=== PATIENT | male | born 1975 | race Caucasian/White ===

== ENCOUNTER → 2018-10-24 09:09 | Outpatient (CLI) | payer MEDICAID, SELFPAY ==
--- NOTE | 2018-10-24 09:11 | RAD_ITS ---
STUDY: X-RAY - CERVICAL SPINE REASON FOR EXAM: Male, 43 years old. right shoulder pain TECHNIQUE: 5 view(s) of the cervical spine were obtained. COMPARISON: None FINDINGS: There is straightening of the normal cervical lordosis. There is multi-level endplate spondylosis. There is multi-level degenerative disc disease with multilevel disc space narrowing. There is no demonstrated spondylitic listhesis on flexion or extension The soft tissue structures are unremarkable. RAD/Cerv Spine Obl/Flex/Ext Comp IMPRESSION: Degenerative changes of the spine. Electronically Signed: Devi Santana MD at 11:57 EDT Tel , Service support ,
--- NOTE | 2018-10-24 09:11 | RAD_ITS ---
STUDY: X-RAY - LEFT SHOULDER REASON FOR EXAM: Male, 43 years old. Pain TECHNIQUE: 4 view(s) of the shoulder. COMPARISON: None. FINDINGS: There is mild degenerative arthrosis of the glenohumeral articulation. Normal acromioclavicular joint. Normal acromion. Normal humeral head and visualized proximal humerus. The soft tissue structures are unremarkable. There is no demonstrated fracture. Normal visualized pulmonary apex. RAD/Shoulder min 2 Views IMPRESSION: Mild glenohumeral arthrosis. Electronically Signed: Madi Holguin MD at 9:53 EDT , Service support ,
== END ==
PROVIDERS: Family Provider Preventive Medicine Occupational Medicine; PCP Preventive Medicine Occupational Medicine; Referring Provider Physician Assistant; Visit Provider Physician Assistant
DX: R20.0 Anesthesia of skin (principal); R20.2 Paresthesia of skin; R52 Pain, unspecified
CPT/HCPCS: 72052; 73030

== ENCOUNTER → 2019-12-05 | Outpatient (CLI) | payer MEDICAID, SELFPAY ==
[2019-12-05 14:28] VITALS: BMI 30.7
--- NOTE | 2019-12-05 15:07 | RAD_ITS ---
STUDY: X-RAY - LEFT SHOULDER REASON FOR EXAM: Male, 44 years old. Chronic shoulder pain. TECHNIQUE: 3 view(s) of the shoulder. COMPARISON: October 24, 2018. FINDINGS: There is mild degenerative arthrosis of the glenohumeral articulation. Normal acromioclavicular joint. Normal acromion. There is no acute fracture, dislocation or destructive osseous pathology. Normal humeral head and visualized proximal humerus. The soft tissue structures are unremarkable. Normal visualized pulmonary apex. RAD/Shoulder min 2 Views IMPRESSION: Degenerative changes glenohumeral joint. There is no interval change. Electronically Signed: Jovany Chahal DO at 9:25 EDT Tel [phone], Service support ,
== END | disposition home or self-care (01) ==
LOC: HPRAD 15:07
PROVIDERS: PCP Preventive Medicine Occupational Medicine; Referring Provider Physician Assistant; Visit Provider Physician Assistant
DX: M25.512 Pain in left shoulder (principal)
CPT/HCPCS: 73030

== ENCOUNTER 2019-12-10 12:13 | Outpatient (RCR) | payer MEDICAID, SELFPAY ==
[2019-12-05 14:28] VITALS: BMI 30.7
--- NOTE | 2019-12-21 11:39 | HP.PTEVAL_ITS ---
Patient's Visit Information HANNA NEWTON is a 44 year old M referred to Physical Therapy by KATHERINE Do with a diagnosis of L shoulder OA, possible SLAP. Date of Evaluation: 12/10/19 Physical Therapist: Marino Osborn DPT - Visit Plan Frequency: 1x/Week Duration: 4 Weeks Plan: Start with AAROM working on end range of overhead motions and functional IR/ER. Add in inferior glides and joint mobs as tolerated. Progress to strength and stability exercises allowing for increased tolerance with all work and redcreational activities. - Subjective Pt. is here today for her initial evaluation with diagnosis of L shoulder OA, possible SLAP tear. Pt. has had pain for ~10 years, but may be longer. Pt. 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 He continued to push through his pain and kept using his arm the best that he could. He works in construction, building storage units. Pt. has to do a decent amout of lifting over his head. Pt. has being doing some exercises on his shoulder with no success. He reports increased pain radiating down his arm at times and occassional shocking pain when he moves it wrong. He is hopeful to r educe symtoms in order to get back to all recreational activities without limitations. - Pain L shoulder Pain Intensity (Out of 10): 3 Pain Intensity Range: 2, 8 Comment: increased with any lifting, in any motion. - Objective POSTURE: Pt. has rounded shoulders, FH posture. pt. has IR positioning of B shoulders. PALPATION: Pt. has increased tenderness at anterior shoulder and subacromial space. NEURO: Pt. has normal sensation and normal DTR of BUEs. ROM: L shoulder- AROM- flexion 135deg increase NW, abd 120deg incerase NW, functional IR L5 increase NW, functional ER C2 increase NW. PROM- flexion 150deg increase NW< adb 140deg increase NE, ER at 90deg- 45deg increase NW, IR at 90deg 30ded Increase NW. MMT: L shoulder- flexion 4/5 increase NE, abd 4/5 increase NW, ER 4/5 increase IR 4/5 increase NW, ext 5/5 NE. - Special Tests L Shoulder Lift Off Test - Subscapular Tear: Negative L Shoulder Drop Sign - IS Test: Negative L Shoulder Empty Can - SS: Positive L Shoulder Belly Press - SupScap: Negative L Shoulder Neer - Impingement: Positive L Shoulder Gunter Teodoro - Impingement: Positive L Shoulder Biceps Load Test - Labrum: Positive L Shoulder Yeargasons - SLAP: Positive Comments: + horn blowers as well - Goals Goal 1:: LTG: Pt. to be I with HEP. Goal Time Frame: 4-6 Weeks Goal 2:: STG: Pt. to sleep throughout the night with out increase in symptoms. Goal Time Frame: 2-4 Weeks Goal 3:: LTG: Pt. to have increased AROM of L shoulder by 25% in all effected ranges without increase in symptoms. Goal Time Frame: 4-6 Weeks Goal 4:: LTG: Pt. to have increased MMT of L shoulder by 1/2 grade of all effected musculature. Goal Time Frame: 4-6 Weeks Goal 5:: LTG: Pt. to complete all work and recreational activities without incerase in symptoms. Goal Time Frame: 4-6 Weeks - Rehabilitation Potential Physical Therapy Diagnosis: Pt. has signs and symptoms consistent with L shoulder OA, possible SLAP tear. Pt. has pain with biceps loading, speeds and any rotation of L shoulder. I suspect a labral tear and OA of L shoulder. Pt. reports having pain for 10+ years. Due to limited motion and higher levels of pa in patient may need MRI to rule out other pathology. I gave him ROM and lgiht strengthening to try, he hopes to complete on his own and follow up with PT in a few weeks. Rehabilitation Potential: Fair - Anticipated Interventions Patient/Client Instruction: Educate patient on: Condition, Plan of Care, Risk Factors, Benefits of Fitness Program For the Purpose of:: To facilitate caregiver knowledge, To improve self management, To prevent re-injury, To improve ability to perform tasks related to life management, To improve tolerance to ADL's Therapeutic Exercise to Include: Strength training, Power training, Postural training, Flexibilty training, Passive ROM, Active ROM, Jorge Exercises, Scapular Strength/Stabilization For the Purpose of:: To decrease pain, To decrease swelling/inflammation, To increase ROM, To improve nutrient delivery to tissue, To increase oxygenation perfusion, To improve muscle performance and motor function, To improve ability to perform ADL's Manual Therapy Techniques to Include: Mobilization, Functional dry needling For the Purpose of:: To decrease pain, To decrease swelling/inflammation, To increase ROM IF ES: Yes Cryotherapy (ice pack, ice massage): Yes Thermo therapy (hot pack): Yes Ultrasound (thermal/non thermal): Yes For the Purpose of:: To decrease pain, To increase ROM, To improve nutrient delivery to tissue, To increase oxygenation perfusion Thank you for the opportunity to evaluate your patient. For Medicare and Medicare HMO plans, please review the plan of care and approve it. It will need to be FAXED BACK to us at [phone] for Medicare purposes. For Medicare only, by signing this I certify the plan of care. Please let me know if there are questions or concerns regarding this plan of care. Physician Signature: Date:
== END 2019-12-10 19:00 ==
LOC: PT 12:13
PROVIDERS: PCP Preventive Medicine Occupational Medicine; Referring Provider Physician Assistant; Visit Provider Physician Assistant
DX: M19.012 Primary osteoarthritis, left shoulder (principal)
CPT/HCPCS: 97110; 97161

== ENCOUNTER 2020-05-22 11:25 | Emergency (ER) | payer BC, MEDICAID, SELFPAY ==
[2019-12-15 08:10] VITALS: BMI 30.7
[2020-05-22 11:27] VITALS: BP 144/96; PULSE 65; RESP 16; TEMP 36.3; O2SAT 98; BMI 30.7
--- NOTE | 2020-05-22 11:45 | EKG12_ITS ---
Test Reason : DIZZINESS Blood Pressure : / mmHG Vent. Rate : 062 BPM Atrial Rate : 062 BPM P-R Int : 186 ms QRS Dur : 096 ms QT Int : 404 ms P-R-T Axes : 031 001 035 degrees QTc Int : 410 ms Normal sinus rhythm Poor R wave progression Inferior NV, age undetermined, cannot be excluded Confirmed by ANIA POWELL, STEPHY ([id number]), editorial specialist PATRICK NEW ([id number]) on 05/25/2020 12:48:18 PM Referred By: BHAVESH Confirmed By:STEPHY JORGE MD
[2020-05-22 11:48] VITALS: O2SAT 98
--- NOTE | 2020-05-22 11:49 | ED.VIS.GEN ---
History of Present Illness Chief Complaint: Dizziness Narrative: Chief complaints is dizziness. Patient did have some lightheaded episodes although they are not vertiginous, he has no disequilibrium. He also is complaining of some chest discomfort and burning that is intermittent that lasts 5 to 10 minutes. It is not exertional. He has no fever or chills. He has no back pain or tearing sensation he has no shortness of breath or pleuritic component. No PE or DVT risk factors. He denies any headache or vision changes he has no paresthesias or weakness or any neurological symptoms. Review of systems: General: Denies: Fever, there is dizziness as in HPI Eyes: Denies: Visual changes - bilaterally ENT: No dry mouth Cardiovascular: Chest pain as in HPI Respiratory: Denies: Dyspnea, Cough Gastrointestinal: No Abdominal pain, Nausea, or vomiting Genitourinary: Denies: Dysuria Musculoskeletal: No edema. Denies: Myalgias, Neck pain Neurological: Denies: Headache, Weakness Psych: Denies: Negative Hematologic: Denies: Easy bruising, Easy bleeding Physical exam General: Well nourished, Well developed, No Acute Distress Head: Normocephalic, Atraumatic Eyes: Conjunctiva not pale ENT: Moist mucous membranes Neck: Supple, Nontender, No lymphadenopathy Cardiovascular: Regular rate, Regular rhythm Respiratory: No distress, CTA bilaterally Abdomen: Soft, Nontender, Nondistended Back: Nontender, Normal Inspection. Negative for: CVA tenderness Extremities: Nontender, No edema Skin: Normal color, No rash Neurological: Alert, Normal Strength, Normal Sensation. Normal cerebellar. Normal gait. Psychological: Normal affect Past Medical History - Allergies and Home Meds Allergies/Adverse Reactions: Allergies prednisone Allergy (Verified 05/22/20 11:27) Swelling Primary Care Physician: Brendon White DO [Primary Care Provider] - Past Medical History: - - Hypertension. Smoking Status: Never smoker Physical Exam Vital Signs/Narrative: Vital Signs Temp Pulse Resp BP Pulse Ox 05/22/20 11:27 97.4 F L 65 16 144/96 H 98 Diagnostic/Tx/Re-eval Chest X-Ray - ED: 1 View, Read by ED Physician, Normal, Heart, Lungs - Rhythm Strip Rhythm Strip: Sinus Rhythm Rate: 62 Ectopy: None - EKG Initial EKG Interpretation: - - Normal sinus rhythm with a rate of 62. Normal VA and QTc intervals. No ischemic changes. Interpreted by emergency doctor - Medical Decision Making Patient has an unremarkable ED work-up. Heart score is a 1. He appears well he is asymptomatic I believe he is safe for discharge. If anything changes worsens or he has worried about anything else he is to return he understands this. ED Disposition - Plan for ED Patient: Disposition: Home or Assisted Living Diagnosis: Chest pain, Dizziness Instructions: ED Chest Pain Atypical Unkn Cause, ED Dizziness [facility] Referrals: Brendon White DO [Primary Care Provider] - Jason Delcid MD [STAFF PHYSICIAN] - 3-5 Days
[2020-05-22] MEDS: Aspirin 81 MG TAB.CHEW 324 MG PO (11:52)
[2020-05-22 11:58] LABS: Absolute Lymphocyte Count 2.12 X10^3/uL (0.83-4.51); Absolute Neutrophil Count 5.9 X10^3/uL (2.0-7.7); Basophil# 0.03 X10^3/uL; Basophil% 0.3 % (0-1); Eosinophil# 0.14 X10^3/uL; Eosinophils% 1.6 % (0-5); Hematocrit 49.6 % (40-54); Hemoglobin 16.6 g/dL (13.0-16.5); Lymphocyte # 2.12 X10^3/ul (4.0); Lymphocyte % 23.9 % (19-41); Mean Corp Hgb Conc 33.5 g/dL (32-36); Mean Corpuscular Hgb 29.1 pg (27.0-32.0); Monocyte% 6.8 % (0-10); NRBC Flagged by Analyzer 0 % (0-5); Neutrophil # 5.94 X10^3/uL (2.7-7.7); Neutrophil % 66.8 % (47-70); Platelet Count 204 K/mm3 (150-450); RBC Distribution Width SD 40.4 fl (35.1-43.9); White Blood Count 8.9 K/mm3 (4.4-11.0)
--- NOTE | 2020-05-22 12:00 | RAD_ITS ---
STUDY: X-RAY CHEST REASON FOR EXAM: Male, 44 years old. chest pain TECHNIQUE: Single AP portable view of the chest. COMPARISON: None. FINDINGS: The lungs are clear and expanded. There is no demonstrated pleural abnormality. Normal size heart. Normal mediastinum and jair. Normal visualized pulmonary arteries. Normal visualized aortic arch and descending thoracic aorta. Normal visualized thoracic spine. Normal visualized ribs, clavicles, and shoulders. There is no demonstrated abnormality of the visualized soft tissue structures of the upper abdomen. RAD/Chest 1 View (Portable) IMPRESSION: Normal x-ray examination of the chest. Electronically Signed: Martin Dey MD at 12:27 EST Tel , Service support ,
[2020-05-22 12:11] LABS: Anion Gap 3 (5-15); BUN 15 mg/dL (7-18); BUN/Creat Ratio 14.3 RATIO (10-20); Calcium,Total 8.8 mg/dL (8.5-10.1); Chloride 100 mmol/L (98-107); Creatinine, Serum 1.05 mg/dL (0.70-1.30); EST Glomerular Filtration Rate 81 mL/min (>60); Est Glom Filt Rate - Afr Amer 98 mL/min (>60); Estimated Creatinine Clearance 79.33 ml/min; Glucose 119 mg/dL (74-106); Potassium 3.6 mmol/L (3.5-5.1); Sodium Level 138 mmol/L (136-145)
[2020-05-22 13:01] VITALS: BP 135/85; PULSE 60; RESP 15; O2SAT 98
== END 2020-05-22 13:06 | disposition home or self-care (01) ==
PROVIDERS: Emergency Provider Emergency Medicine; PCP Preventive Medicine Occupational Medicine
DX: R07.9 Chest pain, unspecified (principal); R42 Dizziness and giddiness; I10 Essential (primary) hypertension; Z79.899 Other long term (current) drug therapy
CPT/HCPCS: 71045; 80048; 84484; 85025; 93005; 99285; A4216

== ENCOUNTER → 2021-04-24 | Outpatient (CLI) | payer OTHER, SELFPAY | END | disposition home or self-care (01) | PROVIDERS: PCP Preventive Medicine Occupational Medicine; Referring Provider Physician Assistant Medical; Visit Provider Physician Assistant Medical | DX: R09.89 Other specified symptoms and signs involving the circulatory and respiratory systems (principal) | CPT/HCPCS: 87635; U0005; U0003 ==